=== PATIENT | female | born 1980 | race Hispanic/Latino ===

== ENCOUNTER 2018-01-29 16:04 | Outpatient (CLI) | payer OTHER ==
--- NOTE | 2018-01-29 18:22 | RAD ---
CERVICAL SPINE FOUR VIEWS: INDICATIONS: Cervicalgia. COMPARISON: 09/07/2016 FINDINGS: There is an ACDF spanning C5 through C7, which appears unchanged from the comparison. The hardware p rojects in the expected position. There is some straightening of the normal cervical lordosis, which is stable. Prevertebral soft tissues are normal appearing. The lateral masses are symmetric. IMPRESSION: Stable postoperative cervical spine. POS: [id number]
== END 2018-01-29 16:05 | disposition home or self-care (01) ==
LOC: TBSIIMAG 16:04
PROVIDERS: ATTEND Surgery
DX: M54.2 Cervicalgia (principal); Z98.1 Arthrodesis status
CPT/HCPCS: 72040